=== PATIENT | male | born 1990 | race Asian ===

== ENCOUNTER 2018-02-09 11:18 | Emergency (ER) | payer MEDICAID ==
[~2018-02-09] VITALS: Ht 180.3 cm; Wt 81.6 kg
[2018-02-09 12:29] VITALS: BP 130/91
[2018-02-09] MEDS ORDERED: Lidocaine 2% Visc 15ml soln ORAL ONE (13:00)
--- NOTE | 2018-02-09 13:42 | Emergency Room Report ---
History of Present Illness General Chief Complaint: General Complaint Source: Patient Present Illness HPI Patient 3 days post finishing course of 3 day azithromycin for mouth pain. States not better. Able to swallow water. No recent fevers. Severe mouth pain rated 10/10. Unable to open mouth well because of sores at sides of lips ( no jaw pain). No fullness of throat or change in voice. Alleged strep infection. (See animal laboratory helper note which differs from patient hx as was given by mother.) No cough, chest pain, throat pain with swallowing. Never with this in the past. No penile lesions, rectal lesions, dysuria or discharge. No other rashes. Allergies: Coded Allergies: No Known Allergies (Unverified , 02/09/18) Patient History Past Medical History: see triage record Social History: Denies: smoking - former Social History Narrative with mother Reviewed Nursing Documentation: PMH: Agreed; PSxH: Agreed Nursing Documentation-PMH Past Medical History: No Stated History Review of Systems All Other Systems: negative except mentioned in HPI Physical Exam Vital Signs Date Time Temp Pulse Resp B/P (MAP) Pulse Ox O2 Delivery O2 Flow Rate FiO2 02/09/18 11:26 97.7 84 18 130/91 96 Room Air 97.7 Sp02 EP Interpretation: reviewed, normal General Appearance: well appearing, no apparent distress, GCS 15, non-toxic Head: normocephalic, atraumatic Eyes: bilateral eye normal inspection, bilateral eye PERRL ENT: hearing grossly normal, normal voice, moist mucus membranes - aphthous ulcers and chelosis also involving tongue Neck: full range of motion, supple, no meningismus Respiratory: lungs clear, normal breath sounds, no respiratory distress, speaking full sentences Cardiovascular #1: regular rate, rhythm Cardiovascular #2: 2+ radial (R) Gastrointestinal: normal inspection, normal bowel sounds, scaphoid Musculoskeletal: back normal, digits/nails normal, gait/station normal, normal range of motion Neurologic: alert, oriented x3, normal gait, grossly normal Psychiatric: mood/affect normal Skin: no rash Medical Decision Making Diagnostic Impression: Primary Impression: Aphthous stomatitis ER Course Patient with oral lesions post azithromycin. DDx: thrush, aphthous stomatitis, herpetic lesions amongst others. Exam c/w aphthous stomatitis. Will treat with viscous lido and analgesia. Also will give rest of full course of azithro. Doubt antiherpes tx would help. No labs or imaging studies indicated. Improved with viscous lido and tolerating PO well. Patient stable for outpatient observation and treatment. Last Vital Signs Date Time Temp Pulse Resp B/P (MAP) Pulse Ox O2 Delivery O2 Flow Rate FiO2 02/09/18 13:49 97.7 69 18 130/91 96 Room Air 97.7 Status: improved Disposition: HOME, SELF-CARE Condition: Improved Scripts Azithromycin* (ZITHROMAX*) 250 Mg Tablet 250 MG ORAL DAILY, #4 TAB Prov: Damon Umaña M.D. 02/09/18 Tramadol Hcl* (ULTRAM*) 50 Mg Tablet 50 MG ORAL Q6H PRN for For Pain, #14 TAB 0 Refills Prov: Damon Umaña M.D. 02/09/18 Lidocaine HCl (Lidocaine HCl Viscous) 100 Ml Solution 10 ML MM Q6HR PRN for For Pain, #120 MG Prov: Damon Umaña M.D. 02/09/18 Damon Umaña M.D. Feb 09, 2018 13:42
[2018-02-09] MEDS ORDERED: LIDOCAINE20 MG/1 M1 MM (13:47)
[2018-02-09] MEDS ORDERED: TRAMADOL HCL50 MG ORAL (13:47)
[2018-02-09 13:49] VITALS: BP 130/91
[2018-02-09] MEDS ORDERED: ZITHROMAX250 MG ORAL (13:53)
== END 2018-02-09 14:30 | disposition home or self-care (01) ==
LOC: EMR 14:21
DX: K12.0 Recurrent oral aphthae (principal)
CPT/HCPCS: 99284

== ENCOUNTER 2019-02-15 12:00 | Emergency (ER) | payer MEDICAID ==
[~2019-02-15] VITALS: Ht 180.3 cm; Wt 86.2 kg
[~2019-02-15 12:00] MED LIST: LIDOCAINE20 MG/1 M1 MM; TRAMADOL HCL50 MG ORAL; ZITHROMAX250 MG ORAL
[2019-02-15 12:14] VITALS: BP 106/76
[2019-02-15] MEDS ORDERED: ADDERAL20 MG ORAL (12:17)
[2019-02-15] MEDS ORDERED: ROBAXIN-750750 MG PO (12:24)
[2019-02-15] MEDS ORDERED: LIDODERM700 M1 TOPIC (12:24)
[2019-02-15] MEDS ORDERED: IBUPROFEN600 MG ORAL (12:24)
[2019-02-15 12:31] VITALS: BP 106/76
--- NOTE | 2019-02-17 14:16 | Emergency Room Report ---
History of Present Illness General Chief Complaint: Pain Source: Patient Present Illness HPI 29-year-old male presents ED for evaluation. Complaining of left shoulder/neck pain which started 2 days ago. Denies any fall or injury. Pain is dull, 5 out of 10, nonradiating. Denies neck stiffness. Denies headache. Denies fevers or chills. No other aggravating relieving factors. Denies any other associated symptoms Allergies: Coded Allergies: No Known Allergies (Unverified , 02/09/18) Patient History Past Medical History: none Past Surgical History: none Pertinent Family History: none Social History: Denies: smoking, alcohol use, drug use Immunizations: UTD Reviewed Nursing Documentation: PMH: Agreed; PSxH: Agreed Nursing Documentation-PMH Past Medical History: No Stated History Review of Systems All Other Systems: negative except mentioned in HPI Physical Exam Vital Signs Date Time Temp Pulse Resp B/P (MAP) Pulse Ox O2 Delivery O2 Flow Rate FiO2 02/15/19 12:14 98.1 78 19 106/76 95 Room Air Sp02 EP Interpretation: reviewed, normal General Appearance: no apparent distress, alert, GCS 15, non-toxic Head: normocephalic Eyes: bilateral eye normal inspection, bilateral eye PERRL ENT: normal ENT inspection Neck: full range of motion, supple, no meningismus, supple/symm/no masses, tender lateral Respiratory: normal inspection Cardiovascular #1: normal inspection Gastrointestinal: normal inspection Rectal: deferred Genitourinary: no CVA tenderness Musculoskeletal: normal range of motion, tender - L trapezius Neurologic: alert, oriented x3, responsive, motor strength/tone normal, sensory intact, speech normal Psychiatric: normal inspection Skin: normal color Lymphatic: normal inspection Medical Decision Making Diagnostic Impression: Primary Impression: Muscle strain ER Course Hospital Course 29-year-old male presents to ED complaining of L sided neck and shoulder pain. no trauma Differential diagnoses include: Fracture, dislocation, sprain, contusion, bursitis Clinical course Patient placed on stretcher. After initial history, physical exam reveals a male in no acute distress. There is some tenderness to the lateral aspect of the. No midline tenderness. Some tenderness over the trapezius. Full range of motion to the shoulder. No bruising or crepitus. No swelling. Skin normal. No signs of infection. Findings with patient. Pain is likely muscular. No imaging indicated at this time. Will discharge home with medications. Safe for discharge for close outpatient follow-up Diagnosis - muscle strain stable and discharged to home with prescription for Motrin, robaxin, lidoderm. Followup with PMD. Return to ED if symptoms recur or worsen Last Vital Signs Date Time Temp Pulse Resp B/P (MAP) Pulse Ox O2 Delivery O2 Flow Rate FiO2 02/15/19 12:31 98.1 78 19 106/76 95 Room Air Status: improved Disposition: HOME, SELF-CARE Condition: Stable Scripts Methocarbamol* (ROBAXIN-750*) 750 Mg Tablet 750 MG PO TID, #21 TAB 0 Refills Prov: Samson Meyer MD 02/15/19 Lidocaine (Lidoderm) 1 Each Adh..patch 1 PATCH TOPIC DAILY, #7 PATCH 0 Refills Patch(es) may remain in place for up to 12 hours in any 24-hour period. Prov: Samson Meyer MD 02/15/19 Ibuprofen* (MOTRIN*) 600 Mg Tablet 600 MG ORAL Q8H PRN for For Pain, #30 TAB 0 Refills Prov: Samson Meyer MD 02/15/19 Referrals: NON PHYSICIAN (PCP) [facility] Open 24 hour /7 days a week by Appointment Only [address] [facility] [address] Patient Instructions: Muscle Strain, [id number] Samson Meyer MD Feb 17, 2019 14:16
== END 2019-02-15 12:40 | disposition home or self-care (01) ==
LOC: EMR 12:21
DX: M54.2 Cervicalgia (principal); M25.512 Pain in left shoulder; T14.8XXA Other injury of unspecified body region, initial encounter; X58.XXXA Exposure to other specified factors, initial encounter; Y92.9 Unspecified place or not applicable
CPT/HCPCS: 99282